=== PATIENT | female | born 1960 | race Caucasian/White ===

== ENCOUNTER → 2017-10-23 | Day surgery (SDC) | payer BC ==
[~2017-10-23] MED LIST: LEVOTHYROXINE125 MCG PO; METFOMIN HYDRO850 MG PO; ZIAC 5-6.25 MG1 EACH PO
--- NOTE | ~2017-10-23 | O ---
[place], [place] OPERATIVE NOTE NAME: SREEDHAR PARKER UNIT #: [id number] ROOM: DOCTOR: [facility] BIR[facility] [birth year] DOS: 10/23/2017 This is a 57-year-old who was undergoing a colonic screening as well as dyspepsia history. ALLERGIES: No known medication. FAMILY HISTORY: Noncontributory. PAST SURGICAL HISTORY: Noncontributory. PAST MEDICAL HISTORY: Hypertension, diabetes, hypothyroidism. PROCEDURE: Today's procedure part of investigation is panendoscopy and colonoscopy. PREMEDICATION: Propofol. SCOPE: Olympus forward-viewing gastroscope Q10 video. REPORT: After putting the patient in left lateral position and application of lubricant to the scope, the scope was introduced. Thereafter, under direct visualization, I advanced the length of esophagus without difficulty. Gastritis was noticed of mild degree. Duodenal bulb, second and third part within normal limits. Antral biopsy obtained for H. pylori. The patient was gradually extubated and tolerated the procedure well. IMPRESSION: Mild gastritis, status post biopsy, ruling out H. pylori. Hyperplastic polyp gastric pouch removed. PLAN AND DISCUSSION: I am going to continue with omeprazole 20 mg 1 every day, antireflux measures and clinical reassessment. Patient advised to abstain from carbonated sodas. The patient has presented with concern about colonic screening, undergoing investigation. PROCEDURE: Today's procedure part of investigation is colonoscopy. PREMEDICATION: Propofol. SCOPE: Olympus forward-viewing colonoscope 10L video. REPORT: After putting the patient in left lateral position and application of lubricant to the scope, the scope was introduced. Thereafter, under direct visualization, advanced through the length of colon without difficulty. Base of the cecum explored, appendiceal orifice identified, ileocecal valve was defined. Photographic series from the above was obtained. Air was suctioned out. Scope [place], [place] OPERATIVE NOTE NAME: SREEDHAR PARKER UNIT #: [id number] ROOM: DOCTOR: FROYLAN FRANK[facility] BIRTH[facility]: [birth year] was gradually withdrawn from ascending, transverse, descending colon. Under circumferential fashion, mucosal vascularity carefully examined. No pathology was found throughout the length of colon. The patient extubated, tolerated procedure well. IMPRESSION: Normal colonoscopic evaluation. PLAN: Continuation with a regular diet. ACTIVITY: Ad richard. FOLLOWUP: Routinely with you in office, p.r.n. visit with us in GI Clinic. YAZ GALEANO MD CM:OPRECORD:OPERATIVE NOTE 1029 T: MD YAZ REMY MD 10/28/17 [id number] DAVIAN [email or web address]
[2017-10-23 09:18] VITALS: BP 156/81
[2017-10-23 10:17] VITALS: BP 122/76
[2017-10-23 10:32] VITALS: BP 141/72
[2017-10-23 10:47] VITALS: BP 128/70
== END | disposition home or self-care (01) ==
LOC: SDC 10-18 10:15
DX: Z12.11 Encounter for screening for malignant neoplasm of colon (principal); K31.7 Polyp of stomach and duodenum; K29.50 Unspecified chronic gastritis without bleeding; K21.9 Gastro-esophageal reflux disease without esophagitis; I10 Essential (primary) hypertension; E11.40 Type 2 diabetes mellitus with diabetic neuropathy, unspecified; E03.9 Hypothyroidism, unspecified; E66.9 Obesity, unspecified; Z79.899 Other long term (current) drug therapy; Z79.84 Long term (current) use of oral hypoglycemic drugs

== ENCOUNTER → 2020-03-23 | Outpatient (CLI) | payer BC | END | disposition home or self-care (01) | LOC: COVID19 12:54 | PROVIDERS: ATTEND Student in an Organized Health Care Education/Training Program | DX: U07.1 COVID-19 (principal) ==

== ENCOUNTER 2022-01-06 09:48 | Emergency (ER) | payer BC ==
[~2022-01-06] VITALS: Ht 160 cm; Wt 54.4 kg
[~2022-01-06 09:48] MED LIST changes: +ATIVAN1 MG PO; +CREON DR 24,001 EACH PO; +HEARTBURN RELIE20 MG PO; +PROCHLORPERAZIN10 MG PO; +VANCOMYCIN250 MG/2.5 PO; +VITAMIN D350 MCG PO; +XARE20MG PO
[2022-01-06 10:29] LABS: BASO % 0.9 % (0.0-1.0); EOS # 0.1 10*3/uL (0.0-0.4); EOS % 1.1 % (1.0-4.0); HEMATOCRIT 33.7 % (37.0-47.0); LYMPH # 1.5 10*3/uL (1.3-4.4); LYMPH % 31.4 % (27.0-41.0); MEAN CELL VOLUME 100.6 fl (81.0-99.0); MEAN CORPUSCULAR HGB 32.5 pg (27.0-31.0); MEAN CORPUSCULAR HGB CONC 32.3 g/dl (33.0-37.0); MEAN PLATELET VOLUME 9.4 fl (9.6-12.3); MONO # 0.8 10*3/uL (0.1-1.0); MONO % 16.2 % (3.0-9.0); NEUT # 2.3 10*3/uL (2.3-7.9); PLATELET COUNT AUTOMATED 384 10*3/uL (130-400); RED BLOOD COUNT 3.35 10*6/uL (4.10-5.10); RED CELL DISTRI WIDTH 15.9 % (0-14.5); WHITE BLOOD COUNT 4.6 10*3/uL (4.8-10.8)
[2022-01-06 10:41] LABS: ACT PARTIAL THROMBO TIME 26.2 SECONDS (20.0-32.1); INTERNATIONAL NORM RATIO 1.1 (2.0-3.5)
[2022-01-06 10:48] LABS: ALKALINE PHOSPHATASE 643 U/L (45-117); BUN 4 mg/dl (7-24); CHLORIDE 105 mmol/L (98-107); CREATININE 0.71 mg/dL (0.55-1.02); SGOT/AST 87 IU/L (3-35); SGPT/ALT 93 U/L (12-78); SODIUM 138 mmol/L (136-145); TOTAL PROTEIN 7.3 gm/dL (6.4-8.2)
== END 2022-01-06 12:22 | disposition home or self-care (01) ==
LOC: ED 09:48
PROVIDERS: Emergency Medicine
DX: S01.01XA Laceration without foreign body of scalp, initial encounter (principal); E03.9 Hypothyroidism, unspecified; Z88.8 Allergy status to other drugs, medicaments and biological substances; Z79.899 Other long term (current) drug therapy; Z90.89 Acquired absence of other organs; W18.39XA Other fall on same level, initial encounter; Y93.89 Activity, other specified; Y92.89 Other specified places as the place of occurrence of the external cause; Y99.8 Other external cause status

== ENCOUNTER 2022-01-11 15:06 | Emergency (ER) | payer BC ==
[~2022-01-11] VITALS: Ht 160 cm
[2022-01-11 16:21] LABS: BASO % 0.6 % (0.0-1.0); HEMATOCRIT 32.2 % (37.0-47.0); LYMPH # 0.6 10*3/uL (1.3-4.4); LYMPH % 9.1 % (27.0-41.0); MEAN CELL VOLUME 100.3 fl (81.0-99.0); MEAN CORPUSCULAR HGB 32.1 pg (27.0-31.0); MEAN PLATELET VOLUME 9.8 fl (9.6-12.3); MONO # 0.3 10*3/uL (0.1-1.0); MONO % 4.7 % (3.0-9.0); NEUT # 5.6 10*3/uL (2.3-7.9); NEUT % 85.3 % (47.0-73.0); PLATELET COUNT AUTOMATED 352 10*3/uL (130-400); RED BLOOD COUNT 3.21 10*6/uL (4.10-5.10); RED CELL DISTRI WIDTH 15.6 % (0-14.5); WHITE BLOOD COUNT 6.6 10*3/uL (4.8-10.8)
[2022-01-11 16:31] LABS: INTERNATIONAL NORM RATIO 1.2 (2.0-3.5)
[2022-01-11 16:37] LABS: ALKALINE PHOSPHATASE 731 U/L (45-117); BUN 5 mg/dl (7-24); CHLORIDE 98 mmol/L (98-107); CREATININE 0.53 mg/dL (0.55-1.02); LIPASE 109 U/L (73-393); POTASSIUM 3.9 mmol/L (3.5-5.1); SGOT/AST 163 IU/L (3-35); SGPT/ALT 116 U/L (12-78); SODIUM 132 mmol/L (136-145); TOTAL PROTEIN 6.7 gm/dL (6.4-8.2)
[2022-01-11 17:42] LABS: BILIRUBIN Negative (Negative); BLOOD Negative (Negative); CLARITY Clear (Clear); COLOR Yellow (Yellow); GLUCOSE Negative (Negative); KETONE Negative (Negative); LEUKO ESTERASE Negative (Negative); NITRITE Negative (Negative); PH 6.5 (4.5-8.0); SPECIFIC GRAVITY <= 1.005 (1.001-1.030); UROBILINOGEN 0.2 E.U./dl (0.0-1.0)
== END 2022-01-11 19:30 | disposition home or self-care (01) ==
LOC: ED 15:06
PROVIDERS: Physician Assistant
DX: R50.9 Fever, unspecified (principal); Z20.822 Contact with and (suspected) exposure to COVID-19; R11.2 Nausea with vomiting, unspecified; Z88.8 Allergy status to other drugs, medicaments and biological substances; Z79.899 Other long term (current) drug therapy; Z90.89 Acquired absence of other organs

== ENCOUNTER 2022-01-11 20:25 | Emergency (ER) | payer BC | END 2022-01-11 20:38 | LOC: ED 20:25 | DX: R50.9 Fever, unspecified (principal); Z53.21 Procedure and treatment not carried out due to patient leaving prior to being seen by health care provider ==

== ENCOUNTER 2022-01-23 19:11 | Emergency (ER) | payer BC | END 2022-01-23 20:00 | disposition left against medical advice (07) | LOC: ED 19:11 | DX: R50.9 Fever, unspecified (principal); Z53.21 Procedure and treatment not carried out due to patient leaving prior to being seen by health care provider ==

== ENCOUNTER 2022-02-10 21:10 | Emergency (ER) | payer BC ==
[~2022-02-10] VITALS: Ht 160 cm; Wt 56.4 kg
[2022-02-10 22:31] LABS: BASO % 0.3 % (0.0-1.0); HEMATOCRIT 32.6 % (37.0-47.0); LYMPH # 0.6 10*3/uL (1.3-4.4); LYMPH % 5.7 % (27.0-41.0); MEAN CELL VOLUME 98.2 fl (81.0-99.0); MEAN CORPUSCULAR HGB 31.9 pg (27.0-31.0); MEAN CORPUSCULAR HGB CONC 32.5 g/dl (33.0-37.0); MEAN PLATELET VOLUME 9.7 fl (9.6-12.3); MONO # 0.9 10*3/uL (0.1-1.0); MONO % 8.9 % (3.0-9.0); NEUT # 8.4 10*3/uL (2.3-7.9); NEUT % 84.8 % (47.0-73.0); PLATELET COUNT AUTOMATED 426 10*3/uL (130-400); RED BLOOD COUNT 3.32 10*6/uL (4.10-5.10); RED CELL DISTRI WIDTH 14.4 % (0-14.5); WHITE BLOOD COUNT 9.9 10*3/uL (4.8-10.8)
[2022-02-10 22:47] LABS: ALKALINE PHOSPHATASE 976 U/L (45-117); BUN 5 mg/dl (7-24); CHLORIDE 97 mmol/L (98-107); CREATININE 0.68 mg/dL (0.55-1.02); POTASSIUM 3.7 mmol/L (3.5-5.1); SGPT/ALT 135 U/L (12-78); SODIUM 130 mmol/L (136-145); TOTAL PROTEIN 7.1 gm/dL (6.4-8.2)
[2022-02-10 22:57] LABS: BILIRUBIN 1+ (Negative); BLOOD Trace-Intact (Negative); CLARITY Clear (Clear); COLOR Dark Yellow (Yellow); GLUCOSE Trace (Negative); KETONE Trace (Negative); LEUKO ESTERASE Negative (Negative); NITRITE Negative (Negative); PH 6.5 (4.5-8.0); UROBILINOGEN 0.2 E.U./dl (0.0-1.0)
[2022-02-10 23:08] LABS: BACTERIA 1+; CALCIUM OXALATE CRYSTALS 2+; MUCOUS 1+
== END 2022-02-11 01:20 | disposition home or self-care (01) ==
LOC: ED 21:10
PROVIDERS: Nurse Practitioner Family
DX: C25.9 Malignant neoplasm of pancreas, unspecified (principal); D64.9 Anemia, unspecified; E87.8 Other disorders of electrolyte and fluid balance, not elsewhere classified; R79.89 Other specified abnormal findings of blood chemistry; E44.0 Moderate protein-calorie malnutrition; E11.65 Type 2 diabetes mellitus with hyperglycemia; I10 Essential (primary) hypertension; Z88.8 Allergy status to other drugs, medicaments and biological substances; Z79.899 Other long term (current) drug therapy; Z90.89 Acquired absence of other organs

== ENCOUNTER 2022-05-19 08:53 | Emergency (ER) | payer BC ==
[~2022-05-19] VITALS: Ht 160 cm; Wt 54.0 kg
[2022-05-19 09:29] LABS: BASO % 0.7 % (0.0-1.0); HEMATOCRIT 34.3 % (37.0-47.0); LYMPH # 0.3 10*3/uL (1.3-4.4); LYMPH % 8.7 % (27.0-41.0); MEAN CELL VOLUME 96.3 fl (81.0-99.0); MEAN CORPUSCULAR HGB 32.9 pg (27.0-31.0); MEAN CORPUSCULAR HGB CONC 34.1 g/dl (33.0-37.0); MEAN PLATELET VOLUME 10.5 fl (9.6-12.3); MONO # 0.3 10*3/uL (0.1-1.0); MONO % 11.2 % (3.0-9.0); NEUT # 2.3 10*3/uL (2.3-7.9); NEUT % 79.1 % (47.0-73.0); PLATELET COUNT AUTOMATED 186 10*3/uL (130-400); RED BLOOD COUNT 3.56 10*6/uL (4.10-5.10); WHITE BLOOD COUNT 2.9 10*3/uL (4.8-10.8)
[2022-05-19 09:44] LABS: ALKALINE PHOSPHATASE 274 U/L (46-116); CHLORIDE 97 mmol/L (98-107); POTASSIUM 3.2 mmol/L (3.4-5.1); SGPT/ALT 16 U/L (10-49); TOTAL PROTEIN 6.9 gm/dL (6.0-8.0)
[2022-05-19 10:00] LABS: BUN < 5 mg/dl (9-23)
== END 2022-05-19 10:41 | disposition home or self-care (01) ==
LOC: ED 08:53
PROVIDERS: Student in an Organized Health Care Education/Training Program
DX: E11.65 Type 2 diabetes mellitus with hyperglycemia (principal); I10 Essential (primary) hypertension; Z88.5 Allergy status to narcotic agent; Z90.89 Acquired absence of other organs

== ENCOUNTER → 2022-06-05 | Outpatient (CLI) | payer BC | END | disposition home or self-care (01) | LOC: RESCLI 09:02 | PROVIDERS: ATTEND Internal Medicine | DX: E11.9 Type 2 diabetes mellitus without complications (principal); C25.9 Malignant neoplasm of pancreas, unspecified; I95.1 Orthostatic hypotension; E03.9 Hypothyroidism, unspecified; E55.9 Vitamin D deficiency, unspecified; K21.9 Gastro-esophageal reflux disease without esophagitis; Z86.711 Personal history of pulmonary embolism; Z86.718 Personal history of other venous thrombosis and embolism; Z98.890 Other specified postprocedural states; Z88.0 Allergy status to penicillin; Z79.899 Other long term (current) drug therapy ==